=== PATIENT | male | born 1985 | race Caucasian/White ===

== ENCOUNTER 2019-03-22 17:44 | Emergency (ER) | payer SELFPAY ==
[2019-03-22 17:55] VITALS: BP 151/94; PULSE 97; RESP 20; TEMP 36.8; O2SAT 95; BMI 33.7
--- NOTE | 2019-03-22 17:59 | ED_ITS ---
HPI - Extremity Problem General: Chief complaint: Extremity Injury, Lower Stated complaint: right leg pain Time Seen by Provider: 03/22/19 17:53 History of Present Illness: HPI Narrative: pt complains of acute on chronic flare of right knee pain. States he feels like there is fluid on his knee. States eh injured it as a child many years ago and it has been hurting him worse over the past few days. He has been using an over the counter wrap for his knee but it has not helped significantly. He does not have a PCP. Advised we will need to get him into a PCP then ortho for chronic pain as we cannot typically manage chronic pain out of the ER. Will xray and obtain US to determine if aspiration would be beneficial. MD Complaint: extremity pain and joint swelling Onset (ago): day(s) (3) Pain Consistency: constant Location: right and knee Severity scale (1-10): 7 Quality: dull Exacerbating factors: weight bearing and walking Associated symptoms: Reports no associated symptoms; Deny chest pain, fever(s) or rash Review of Systems Const: Denies: fever, chills, change in appetite or malaise Eyes: Denies: change in vision, blurry vision, eye discharge or eye redness ENMT: Denies: throat pain, uvular edema, painful swallowing, mouth pain, dental pain, nasal congestion or facial/sinus pain Card: Denies: chest pain, irregular heart rhythm, swelling of feet/ankles, shortness of breath on exertion, shortness of breath when lying down or leg pain with exertion Resp: Denies: shortness of breath, productive cough, wheezing or coughing up blood GI: Denies: abdominal pain, nausea, vomiting, diarrhea, constipation or fecal incontinence : Denies: flank pain, painful urination, urinary frequency, urinary urgency or urinary hesitancy Musc: Reports: extremity pain, joint pain and joint swelling; Denies: neck pain or back pain Skin/Breast: Denies: rash, itching, redness, yellow skin or dry skin Neuro: Denies: headache, numbness in extremities, weakness in extremities, changes in sensation, lack of coordination or difficulty walking Psych: Denies: anxiety, depression, mood swings, panic attacks, sleeping less, suicidal ideation or homicidal ideation Endo: Denies: excessive urination, excessive thirst or tired all the time Rashad/Lymph: Denies: easy bruising, petechiae or enlarged lymph nodes All/Imm: Denies: hives, throat swelling, facial swelling, acute wheezing or seasonal allergies PFSH ED PFSH: Statuses (acute, chronic, etc) shown below reflect problem list status as previously entered and may not be historically accurate Social History Smoking and tobacco status: never smoked Physical Exam Const: COMMON NORMALS: no apparent distress, oriented x3, no limitations, healthy appearing, alert and well nourished GENERAL APPEARANCE: cooperative, comfortable, well kempt and well developed ORIENTATION/CONSCIOUSNESS: Yes awake, Yes oriented to person, Yes oriented to place and Yes oriented to time HENMT: COMMON NORMALS: normocephalic, head/scalp atraumatic, hearing grossly normal bilaterally, external ears normal, EAC's normal, TM's normal bilaterally, external nose normal, nasal mucous membranes and turbinates normal, moist oral mucous membranes, oropharynx normal, dentition normal and gingiva normal HEAD & SCALP: normal to inspection, normocephalic and atraumatic FACE & SINUS: normal facial exam NOSE: external nose normal and nasal mucous membranes and turbinates normal EXTERNAL EAR: Yes external ears normal EXTERNAL AUDITORY CANAL: EAC's normal TYMPANIC MEMBRANE: TM's normal bilaterally MOUTH: oral and palatal mucosa normal, lip normal and tongue normal THROAT: no uvular edema Eye: COMMON NORMALS: PERRL, EOMs intact bilaterally, conjunctivae normal, no scleral icterus and normal visual ng by confrontation GENERAL EYE: normal appearance of both eyes and normal light reflex VISUAL ACUITY: Yes acuity normal ALIGNMENT: Yes alignment normal PERIORBITAL: periorbital findings normal EYELID: eyelids normal CONJUNCTIVA: Yes conjunctivae normal SCLERA: sclerae normal PUPIL: Yes PERRL and Yes accommodation reflex normal DIRECT OPHTHALMOSCOPY: Yes normal light reflex Neck/C-Spine: COMMON NORMALS: full ROM, no lymphadenopathy, supple, no meningeal signs and no JVD GENERAL: Yes normal visual inspection CAROTIDS: Yes normal carotid upstroke CERVICAL SPINE: Yes cervical ROM normal Lymph: LYMPHATIC: no lymphadenopathy noted Chest: COMMONS NORMALS: inspection of chest normal CHEST: Yes symmetrical chest wall rise Resp: COMMON NORMALS: normal respiratory effort, no retractions, no use of accessory muscles and clear to auscultation bilaterally EFFORT & INSPECTION: Yes able to speak in complete sentences and Yes symmetric chest movement AUSCULTATION: clear to auscultation bilaterally Cardio: COMMON NORMALS: no JVD, regular rate, regular rhythm, S1 normal heart sound, S2 normal heart sound, no murmurs and peripheral pulses 2+ throughout RATE: regular rate RHYTHM: regular rhythm HEART SOUNDS: S1 normal and S2 normal PERIPHERAL PULSES: pulses 2+ throughout GI: COMMON NORMALS: normal to inspection, nondistended, normoactive bowel sounds and non-tender : COMMON NORMALS: Yes no CVA tenderness BLADDER/KIDNEY EXAM: Yes no CVA tenderness Back/Pelvis: COMMON NORMALS: no CVA tenderness, thoracic and lumbar spine normal to inspection, no thoracic nor lumbar tenderness and thoraco-lumbar ROM normal Extremity: COMMON NORMALS: normal to inspection, full ROM, normal capillary refill, no calf tenderness and no pedal edema Neuro: COMMON NORMALS: oriented x3, CN's II-XII intact bilaterally, moves all extremities, no focal motor deficits, no sensory deficits noted and gait normal SENSORIUM/ORIENTATION: Yes alert, Yes oriented to person, Yes oriented to place and Yes oriented to time MENINGEAL SIGNS: Yes no meningeal signs SPEECH: speech normal GAIT: Yes normal gait MOTOR EXAM: strength 5/5 throughout, no pronator drift and no tremor noted Psych: COMMON NORMALS: mental status grossly normal, thought process normal, cooperative, affect normal, speech normal and activity/motor behavior normal APPEARANCE: Yes well kempt SPEECH: Yes normal speech THOUGHT PROCESS: normal thought process THOUGHT CONTENT: Yes normal thought content INSIGHT: insight good Skin: COMMON NORMALS: no rashes or lesions noted, no wounds, skin turgor normal and no jaundice GENERAL SKIN EXAM: no rashes or lesions noted and turgor normal Course ED course: US shows fluid but not a significant amount. Will place in immobilizer and crutches, advise we will direct him to a PCP for follow up. Vital Signs: Vital signs: Vital Signs Temperature 98.2 F 03/22/19 17:55 Pulse Rate 78 03/22/19 19:51 Respiratory Rate 16 03/22/19 19:51 Blood Pressure 146/82 03/22/19 19:51 Pulse Oximetry 98 03/22/19 19:51 MDM - Extremity (Nontraumatic) MDM Narrative: Medical decision making narrative: will obtain US to determine if there is enough fluid to aspirate. Patient will be given knee immobilizer and crutches and pcp follow up for further referrals and therapies Discharge Plan Discharge Patient Disposition: Home, Self-Care Clinical Impression: Effusion, right knee Knee pain, right Qualifiers: Chronicity: chronic Qualified Code(s): M25.561 - Pain in right knee Condition: Stable Prescriptions: [place] 5-325 mg tablet 1 tab PO Q6H Qty: 14 RF: 0 Anaprox DS 550 mg tablet 550 mg PO BID PRN (Reason: pain) Qty: 14 RF: 0 Discharge Diet: Usual diet Discharge Activity: Use walker/crutches as instructed Patient Instructions: Crutch Instructions (ED), Knee Effusion (ED), Knee Pain (ED), Knee Immobilizer (ED) Coding Level of Care Code ED Supervisor Beater Room for Mary See Exam Problem Focused
--- NOTE | 2019-03-22 18:05 | USR_ITS ---
PROCEDURE INFORMATION: Exam: US UNLISTED PROCEDURE DX OR IR Exam date and time: 03/22/2019 7:33 PM Age: 33 years old Clinical indication: Pain; Patient status: Conscious; Pain: RT knee; Additional info: Knee effusion TECHNIQUE: Imaging protocol: US UNLISTED PROCEDURE DX OR IR COMPARISON: No relevant prior studies available. FINDINGS: Anechoic fluid along the lateral right knee measuring up to 6 mm in thickness and approximately 3.6 cm in length. Is difficult to determine from these images whether this communicates with the joint space. US/US soft tissue/extremity [id number] IMPRESSION: Anechoic fluid along the lateral right knee. This could represent part of a knee effusion. This can be further evaluated with CT or MRI imaging.
--- NOTE | 2019-03-22 18:05 | XRR_ITS ---
PROCEDURE INFORMATION: Exam: XR Right Knee Exam date and time: 03/22/2019 6:07 PM Age: 34 years old Clinical indication: Pain; Knee; Right; Additional info: Pain red and swollen TECHNIQUE: Imaging protocol: XR Right knee. Views: 3 views. COMPARISON: No relevant prior studies available. FINDINGS: Bones/joints: Knee effusion. The bones are intact and in normal alignment. Soft tissues: Normal. XR/XR knee RT 3V* [id number] IMPRESSION: 1. Knee effusion.
[2019-03-22] MEDS: HYDROcodone-acetaminophen 10-325 mg Tablet 1 TAB PO (18:23)
--- NOTE | 2019-03-22 19:11 | PC.NURSE ---
REPORT RECEIVED FROM [facility] TRANSFERRED TO [facility]
[2019-03-22 19:42] VITALS: BP 146/82; PULSE 74; RESP 16; O2SAT 98
[2019-03-22 19:51] VITALS: BP 146/82; PULSE 78; RESP 16; O2SAT 98
[2019-03-22 20:12] VITALS: BP 128/84; PULSE 83; RESP 16; O2SAT 98
== END 2019-03-22 20:18 | disposition home or self-care (01) ==
PROVIDERS: Emergency Provider Emergency Medicine
DX: M25.461 Effusion, right knee (principal); G89.29 Other chronic pain
CPT/HCPCS: 73562; 76882; 99281; 99283; E0114

== ENCOUNTER 2022-06-01 07:08 | Outpatient (CLI) | payer OTHER, SELFPAY ==
--- NOTE | 2022-06-01 07:15 | MR_ITS ---
WS: [id number] MRI RIGHT KNEE HISTORY: M25.569 - Pain in unspecified knee COMPARISON: Radiograph 03/22/2019 Anterior cruciate ligament: Increased T2 signal in the distal ACL but the fibers are intact. Suggest mild sprain. Early mucoid degeneration is also a possibility. Posterior cruciate ligament: Intact. Small amount of adjacent edema. Medial collateral ligament: Intact. Posterior lateral corner structures: Intact. Medial menisci: Intact. Normal signal, size and shape. Lateral meniscus: Intact. Normal signal, size and shape. Extensor mechanism: Distal quadriceps tendon and patellar tendons are intact. Fluid and soft tissue: Small suprapatellar joint effusion. Very tiny amount of fluid in the region of Price's cyst. Osseous and articular structures: Patellofemoral compartment: Normal. Medial compartment: Normal. No cartilage defects or marrow edema. No joint space narrowing. Lateral compartment: Very minimal hypertrophic osteophytes from the joint line. No marrow edema. Very minimal fissuring and thinning of the cartilage. MR/MR knee RT wo con* [id number] IMPRESSION: 1. Small suprapatellar joint effusion. 2. No marrow edema or fractures identified. 3. Very minimal joint line osteophytes in the lateral compartment. 4. No meniscal tears are identified. 5. Very small amount of edema involving the distal ACL but no full-thickness t ear. Consider mucoid degeneration.
== END 2022-06-01 07:09 | disposition home or self-care (01) ==
PROVIDERS: PCP Nurse Practitioner Family; Visit Provider Nurse Practitioner Family
DX: G89.29 Other chronic pain; M25.461 Effusion, right knee; M25.761 Osteophyte, right knee; R60.9 Edema, unspecified
CPT/HCPCS: 73721

== ENCOUNTER → 2022-10-24 14:18 | Outpatient (BNVA) | payer OTHER, SELFPAY | PROVIDERS: PCP Nurse Practitioner Family; Visit Provider Nurse Practitioner | DX: I10 Essential (primary) hypertension (principal) | CPT/HCPCS: 80053; 84443 ==